=== PATIENT | male | born 1995 | race Two or more races ===

== ENCOUNTER 2024-03-10 02:16 | Emergency (ER) | payer SELFPAY ==
[2024-03-10 02:22] VITALS: BP 138/92; PULSE 76; RESP 19; TEMP 36.5; O2SAT 98; BMI 22.1
--- NOTE | 2024-03-10 02:39 | PD.EDDIZZY ---
ED Dizzyness RME/HPI General Chief Complaint: General Adult/Misc Complain Stated Complaint: NOT FEELING WELL, DIZZINESS Time Seen by Provider: 03/10/24 02:31 Source: patient Arrival date/time: 03/10/24 02:16 29-year-old male presents emergency department complaining of generalized weakness, dizziness, diffuse abdominal pain that started this morning. Patient denies any fever, chills, cough, shortness of breath, nausea vomiting, diarrhea, dysuria, flank pain, or any other associated symptoms. Mode of arrival: ambulatory Limitations: no limitations Related Data Previous Rx's ?Medication ?Instructions ?Recorded amoxicillin 875 mg-potassium 1 tab PO BID #14 tabs 06/28/23 clavulanate 125 mg tablet ibuprofen 800 mg tablet 800 mg PO TID PRN pain #30 tabs 06/28/23 Allergies Allergy/AdvReac Type Severity Reaction Status Date / Time No Known Allergies Allergy Verified 06/28/23 10:27 Review of Systems Review of Systems Systems Reviewed: All systems reviewed, normal except as documented Constitutional Constitutional: Reports system reviewed and no additional complaints, except as documented, Denies body ache(s), Denies chills, Denies fever(s) and Reports weakness Eyes Eyes: Reports system reviewed and no additional complaints, except as documented and Denies change in vision ENT Ears, Nose, Mouth, and Throat: Reports system reviewed and no additional complaints, except as documented, Denies disequilibrium, Denies dizziness, Denies sore throat and Reports vertigo Cardiovascular Cardiovascular: Reports system reviewed and no additional complaints, except as documented, Denies chest pain and Denies dyspnea Respiratory Respiratory: Reports system reviewed and no additional complaints, except as documented, Denies chest congestion, Denies cough and Denies dyspnea Gastrointestinal Gastrointestinal: Reports system reviewed and no additional complaints, except as documented, Reports abdominal pain, Denies nausea and Denies vomiting Musculoskeletal Musculoskeletal: Reports system reviewed and no additional complaints, except as documented, Denies abnormal gait and Denies arthralgias Integumentary/Breasts Skin/Breast: Reports system reviewed and no additional complaints, except as documented, Denies erythema, Denies rash and Denies wounds Neurologic Neurologic: Reports system reviewed and no additional complaints, except as documented, Denies abnormal gait, Denies disequilibrium, Denies dizziness, Reports vertigo and Reports weakness Past Medical History Social History SMOKING STATUS: Never smoker ED Exam General Limitations: Present no limitations General appearance: Present alert and in no apparent distress Head Head exam: Present atraumatic Eye Eye exam: Present normal appearance, PERRL and EOMI ENT ENT exam: Present normal exam, normal oropharynx and mucous membranes moist Expanded ENT Exam Throat exam: Absent tonsillar erythema or tonsillar exudate Neck Neck exam: Present normal inspection, full ROM and trachea midline Chest Chest inspection: Present normal inspection and symmetric chest wall rise Respiratory Respiratory exam: Present normal lung sounds bilaterally Cardiovascular Cardiovascular exam: Present regular rate, normal rhythm and normal heart sounds Abdominal Exam Abdominal exam: Present soft and normal bowel sounds; Absent tenderness, rebound, rigidity, Mims's sign or tenderness at McBurney's Point Extremities Exam Extremities exam: Present normal inspection and full ROM Back Exam Back exam: Present normal inspection and full ROM Neurological Exam Neurological exam: Present alert, oriented X3 and CN II-XII intact Psychiatric Psychiatric exam: Present normal affect and normal mood Skin Skin exam: Present warm, dry, intact and normal color Course Quality Measures none Orders Category Date Time Status Bedside COVID-19 Antigen Test NOW Care 03/10/24 02:39 Completed Bedside Influenza A&B Antigen Test NOW Care 03/10/24 02:39 Completed Alcohol, Urine Stat Lab 03/10/24 02:56 Completed Drug Screen,Urine Stat Lab 03/10/24 02:56 Completed Vital Signs Vital signs: Vital Signs Temperature 97.7 F 03/10/24 02:22 Pulse Rate 76 03/10/24 02:22 Respiratory Rate 19 03/10/24 02:22 Blood Pressure 138/92 H 03/10/24 02:22 Pulse Oximetry (%) 98 03/10/24 02:22 Oxygen Delivery Method Room Air 03/10/24 02:22 98% room air within normal limits Dizziness MDM Narrative MDM Narrative:: 29-year-old male presents emergency department complaining of generalized weakness, dizziness, diffuse abdominal pain that started this morning. Patient denies any fever, chills, cough, shortness of breath, nausea vomiting, diarrhea, dysuria, flank pain, or any other associated symptoms. Patient appears nontoxic and hemodynamically stable. Patient's abdomen is soft and nontender. No adventitious lung sounds on auscultation. ENT exam within normal limits. COVID and influenza swabs negative. Patient GCS of 15 with steady gait. Patient likely suffering from viral infection. Patient discharged back to follow-up with primary care provider in 24 to 48 hours and return to emergency department for any worsening symptoms or as needed. Patient data External records reviewed:: [facility] previous records Clinical information provided by:: patient Social determinants that could affect healthcare access:: none Patient has the following chronic illnesses:: N/A How is presenting disease/condition affected by chronic disease/condition?: no chronic disease Evaluation data The following diagnostics were reviewed and interpreted by me:: lab results Lab and/or radiology exams considered but not ordered:: Ordered Interpretation Summary: Interpreted by me Medications / Prescriptions Medications or Prescriptions considered but not ordered:: N/A Medication administrations:: N/A Consultations Consultation(s) initiated? (list below): No Diagnosis Dizziness Differential Diagnosis: benign paroxysmal positional vertigo and orthostatic hypotension Most likely diagnosis given after review of the tests above:: Viral syndrome Admission Indicated Admission indicated?: not indicated Admission Request Was there a request for admission?: No Disposition Plan Disposition Plan: Discharge Discharge Attestation Discharge Attestation: The patient and all family members were given an opportunity to ask questions and understood the discharge instructions. Discharge instructions specifically effects, indications for sooner follow up or return to the emergency department, and the expected course of current diagnosis. Patient condition: Stable Discharge Plan Plan Patient Disposition: HOME (Self Care) Disposition Comment: Stable Prescriptions/Referrals Prescriptions/Med Rec: No Action amoxicillin-pot clavulanate 875-125 mg tablet 1 tab PO BID Qty: 14 0RF ibuprofen 800 mg tablet 800 mg PO TID PRN (Reason: pain) Qty: 30 0RF Referrals: No Primary/Family,Physician [Primary Care Provider] - In 1 week Problem List Clinical Impression: Viral syndrome Patient/Caregiver Discharge Instructions Discharge Activity: activity as tolerated Education Materials: ED Viral Syndrome (Adult) Additional Instructions: Drink plenty of fluids and stay hydrated. Take [id number] Tylenol or ibuprofen as needed for pain. Follow-up with primary care provider 24 to 48 hours and return for any worsening symptoms or as needed. Print Language: Georgian Stand Alone Forms: Gabriela Award Info., Patient Portal Info Letter PA/LITZY Supervising Physician PA/MAIL PROCESSING ASSOCIATE Supervising Physician: Dr. Jones
[2024-03-10 03:49] LABS: Alcohol, Urine Negative (Negative); Amphetamine/Methamp Scrn,U Negative (Negative); Barbiturate Screen,Urine Negative (Negative); Benzodiazepines Screen,Urine Negative (Negative); Benzoylecgonine Screen, Ur Negative (Negative); Fentanyl Screen,Urine Negative (Negative); Opiate Screen,Urine Negative (Negative); THC Screen,Urine Negative (Negative)
[2024-03-10 04:07] VITALS: RESP 18
== END 2024-03-10 04:07 | disposition home or self-care (01) ==
PROVIDERS: Emergency Provider Emergency Medicine
DX: B34.9 Viral infection, unspecified (principal)
CPT/HCPCS: 80307; 80320; 87400; 87811; 99283; G0480

== ENCOUNTER 2024-06-25 11:29 | Emergency (ER) | payer SELFPAY ==
[2024-06-25 11:31] VITALS: BMI 20.1
--- NOTE | 2024-06-25 11:49 | EKG_ITS ---
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
[2024-06-25 12:13] VITALS: BP 137/81; PULSE 98; RESP 16; TEMP 37.2; O2SAT 98; BMI 23.6
--- NOTE | 2024-06-25 12:16 | XR_ITS ---
Examination: PA lateral chest 2 views TECHNIQUE: Upright PA lateral chest 2 views Exam date and time: June 25, 2024 1243 hours INDICATIONS: Chest pain today. FINDINGS: Normal heart size Lungs are clear. The osseous structures are intact IMPRESSION: No active disease
--- NOTE | 2024-06-25 12:18 | PD.EDRME ---
Rapid Medical Screening Exam RME Arrival date/time: 06/25/24 11:29 29-year-old male presents to the emergency department today stating he drank approximately 18 beers last night patient reports chest pain and abdominal pain today Chief Complaint: Chest Pain Vital signs: Vital Signs Temperature 99.0 F 06/25/24 12:13 Pulse Rate 98 06/25/24 12:13 Respiratory Rate 16 06/25/24 12:13 Blood Pressure 137/81 H 06/25/24 12:13 Pulse Oximetry (%) 98 06/25/24 12:13 Oxygen Delivery Method Room Air 06/25/24 12:13
[2024-06-25] MEDS: FAMOTIDINE 20 MG TABLET 40 MG PO (12:21)
[2024-06-25] MEDS: METOCLOPRAMIDE 5 MG TABLET 10 MG PO (12:22)
[2024-06-25 12:41] LABS: Collection Type, Urine Clean Catch; Squamous Epithelial Cell,Urine 0 /hpf (0-5)
[2024-06-25 12:51] LABS: Basophils % (Auto) 0 % (0-2.5); Eosinophils % (Auto) 0 % (0-10); Hematocrit 46.2 % (41.0-53.0); Hemoglobin 16.3 g/dL (13.5-16.0); Immature Granulocytes % (Auto) 0 % (0-0); Immature Granulocytes Auto 0.04 Thou/mm3 (0.00-0.00); Lymphocytes # (Auto) 2.2 Thou/mm3 (1.0-4.8); Lymphocytes % (Auto) 23 % (10-50); Mean Corpuscular HGB Conc 35.3 g/dl (31.0-37.0); Mean Corpuscular Hemoglobin 29.9 pg (25.0-35.0); Mean Corpuscular Volume 85 fL (80-100); Monocytes # (Auto) 0.5 Thou/mm3 (0.0-0.8); Monocytes % (Auto) 5 % (0-12); Neutrophils # (Auto) 7.1 Thou/mm3 (1.8-7.7); Neutrophils % (Auto) 72 % (37-80); Nucleated Red Blood Cell % 0 /100 WBC (0); Platelet Count 399 Thou/mm3 (140-440); RDW Standard Deviation 38.5 fL (35.1-43.9); Red Blood Count 5.45 Miln/mm3 (4.50-5.90); White Blood Count 9.9 Thou/mm3 (3.8-10.6)
[2024-06-25 12:58] LABS: Amphetamine/Methamp Scrn,U Negative (Negative); Barbiturate Screen,Urine Negative (Negative); Benzodiazepines Screen,Urine Negative (Negative); Benzoylecgonine Screen, Ur Negative (Negative); Fentanyl Screen,Urine Negative (Negative); Opiate Screen,Urine Negative (Negative); THC Screen,Urine Negative (Negative)
[2024-06-25 13:11] LABS: Alanine Aminotransferase 23 U/L (10-49); Albumin/Globulin Ratio 1.6 (1.2-2.2); Alcohol, Blood Medical 23.4 mg/dL (0-10.0); Alkaline Phosphatase 83 U/L (46-116); Anion Gap 11 (7-16); Aspartate Amino Transferase 13 U/L (0-34); BUN/Creatinine Ratio 18 Ratio (12-20); Blood Urea Nitrogen 14 mg/dL (9-23); Calcium 9.4 mg/dL (8.3-10.6); Calcium (Corrected) 9.4 mg/dL (8.5-10.1); Carbon Dioxide 27.8 mMol/L (20.0-31.0); Chloride 101 mMol/L (98-107); Creatinine (Component) 0.8 mg/dL (0.6-1.3); Estimated Creatinine Clearance 118.5 mL/min (>60); Globulin 3.1 gm/dL (2.3-3.5); Glucose 100 mg/dL (74-106); Lipase 29 U/L (12-53); Osmolality,Calculated 279 (275-295); Potassium 3.9 mMol/L (3.4-5.1); Sodium 140 mMol/L (136-145); Total Protein 8.1 gm/dL (5.7-8.2); Troponin I 0.028 ng/mL (0.0-0.045); eGFR > 60 See Note
[2024-06-25 13:35] LABS: Bilirubin,Urine Negative (Negative); Blood,Urine Negative (Negative); Clarity,Urine Clear (Clear/Hazy); Color,Urine Yellow (Lt Yel-Yel); Culture Indicated,Urine Not Indicated; Glucose, Urine Trace (Negative); Ketones,Urine Trace (Negative); Leukocyte Esterase,Urine Negative (Negative); Nitrite,Urine Negative (Negative); Protein,Urine 1+ (Neg - Trace); RBC,Urine 7 /hpf (0-3); Specific Gravity,Urine 1.035 (1.001-1.035); Urobilinogen,Urine Negative mg/dL (0.0-1.0); WBC,Urine 1 /hpf (0-5)
--- NOTE | 2024-06-25 14:15 | PC.NURSE ---
Pt was called for revitaling but did not respond to name being called in lobby. Pt was looked for outside and was not found.
--- NOTE | 2024-06-25 15:24 | PC.NURSE ---
Pt was not found when name was called in the lobby and was not found outside.
--- NOTE | 2024-06-25 15:43 | PC.NURSE ---
Pt did not answer when name was called and was not found outside.
--- NOTE | 2024-06-25 16:08 | PC.NURSE ---
CALLED PATIENT IN LOBBY AND OUTSIDE, NO ANSWER RECEIVED.
== END 2024-06-25 16:10 | disposition left against medical advice (07) ==
LOC: SERX 12:47
PROVIDERS: Nurse Practitioner Primary Care; Emergency Provider Emergency Medicine
DX: R07.9 Chest pain, unspecified (principal); R10.9 Unspecified abdominal pain; Z53.29 Procedure and treatment not carried out because of patient's decision for other reasons
CPT/HCPCS: 36415; 71046; 80053; 80307; 80320; 81001; 83690; 84484; 85025; 93005; 99283; A9270; G0480